=== PATIENT | female | born 1960 | race Caucasian/White ===

== ENCOUNTER → 2016-11-25 | Outpatient (CLI) | payer BC ==
--- NOTE | ~2016-11-25 | MR104 ---
[facility] A Service of [facility] RADIOLOGY TEXT RESULTS PATIENT: KUSUM LIN LOCATION: [facility] : 62 UNIT #: [id number] AGE: [address]: Mahsa Huber MD SEX: F ORDER DR: [id number] [address] [address] [id number] MR#: [id number] Acc #: [id number] NAME: KUSUM LIN : 1960 SEX: F STUDY DATE/TIME: 11/25/2016 11:50 UNIT: [facility] ROOM: STUDY DESCRIPTION: MR Knee Wo Contrast Rt Attending Physician: Mahsa Huber M.D. Referring Physician: Mahsa Huber M.D. Ordering Physician: Mahsa Huber M.D. Primary Care Physician: Mahsa Huber M.D. MRI CENTER REPORT This report is preliminary unless electronic signature is present. EXAM MRI of the right knee, 11/25/2016. COMPARISON No correlative studies. HISTORY Order states right knee pain. History sheet states possible injury at work 10/31/2016. Hit knee against a heavy metal object. Increasing pain and swelling. Also felt a pop 2 weeks ago just getting out of bed. No knee surgery. FINDINGS There is a mild to moderate joint effusion without a popliteal cyst. Patellofemoral alignment is within normal limits. There is moderate and high-grade chondromalacia of the patellofemoral compartment involving patella and femoral trochlea, especially on the medial side. Quadriceps and patellar tendons are intact. Cruciate ligaments are normal. The medial meniscus and MCL are normal. Medial compartment demonstrates slight joint space narrowing and minimal marginal osteophyte formation. There is a low grade chondromalacia of the weightbearing medial compartment. There is a full-thickness chondral defect of the posterior non-weightbearing medial femoral condyle measuring 9 mm craniocaudal by 5 mm transverse. The lateral meniscus, lateral collateral ligament complex, and popliteus tendon are intact. Small foci of [id number] grade chondromalacia of the posterior weightbearing lateral compartment are noted. The lateral collateral ligament complex and the popliteus tendon are intact. [facility] A Service of [facility] RADIOLOGY TEXT RESULTS PATIENT: KUSUM LIN LOCATION: [facility] : 62 UNIT #: [id number] AGE: [address]: Mahsa Huber MD SEX: F ORDER DR: There is no marrow lesion or fracture. No sizeable loose bodies are noted. IMPRESSION 1. 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 There is a sizable defined 9 x 5 mm full-thickness chondral defect of the posterior non-weightbearing medial femoral condyle. 2. Joint effusion. 3. No sizeable loose bodies are located. 4. Cruciate ligaments and menisci are intact. Dictated by... Sonal Fox M.D. THIS IS AN ELECTRONICALLY VERIFIED REPORT Sonal Fox M.D. at 11/26/2016 11:03 AM KIKO/marshal TD: 11/25/2016 16:22 JOB #: [id number] MRI CENTER REPORT Page 1 of 1
== END | disposition home or self-care (01) ==
LOC: SRAD 11:23
DX: M25.561 Pain in right knee (principal); M22.41 Chondromalacia patellae, right knee; M25.461 Effusion, right knee
CPT/HCPCS: 73721